=== PATIENT | male | born 1960 | race Caucasian/White ===

== ENCOUNTER 2016-10-12 20:30 | Emergency (ER) | payer OTHER ==
[~2016-10-12 20:30] MED LIST: ASAB PO; BEN25 PO; CENTRUM PO; EPZICOM 600/3001 TAB PO; FLOMAX4 PO; LIPITOR40 PO; LOP25 PO; LOP50 PO; LUNESTA3 MG PO; NORCO1 TA1 PO; NORV5 PO; SENTAB PO; TIVICAY50 MG PO
== END 2016-10-12 22:25 | disposition left against medical advice (07) ==
LOC: ER 20:30
DX: Z53.21 Procedure and treatment not carried out due to patient leaving prior to being seen by health care provider (principal)
CPT/HCPCS: 80048; 85025; 87040